=== PATIENT | female | born 1950 | race Caucasian/White ===

== ENCOUNTER 2018-01-30 09:17 | Day surgery (SDC) | payer MEDICARE, MEDICAID ==
[~2018-01-30 09:17] MED LIST: Buffered Lidocaine 0.9% SYRIN* 5 ML/SYR SYRINGE INTRADERM ONE; Dexamethasone IV* 4 MG/ML 1 ML (4 MG) IV SLOW PU ONE; Famotidine IV* 10 MG/ML 2 ML (20 mg) IV ONE
[2018-01-30] MEDS ORDERED: Dexamethasone IV* 4 MG/ML 1 ML (4 MG) ONE (09:46)
[2018-01-30] MEDS ORDERED: Famotidine IV* 10 MG/ML 2 ML (20 mg) ONE (09:46)
[2018-01-30] MEDS ORDERED: Clindamycin 900 MG/D5W BAG(*) 900 MG/50 ML BAG IVPB ONE (09:46)
[2018-01-30] MEDS ORDERED: Propofol* 10 MG/ML 20 ML BTL IV PUSH ONE (10:01)
[2018-01-30] MEDS ORDERED: fentaNYL* 50 MCG/ML 2 ML VIAL (100 MCG VIAL) ONE ×2 (10:01→12:29)
[2018-01-30] MEDS ORDERED: Lidocaine 2% PF * 5 ML VIAL ONE (10:02)
[2018-01-30] MEDS ORDERED: Ropivacaine* 2 MG/ML 20 ML VIAL (0.2%) ONE (10:06)
[2018-01-30] MEDS ORDERED: Glycopyrrolate IV* 0.2 MG/ML 1 ML VIAL ONE (11:23)
[2018-01-30] MEDS ORDERED: Ondansetron INJ* 2 MG/ML VIAL ONE (11:29)
[2018-01-30] MEDS ORDERED: Ketorolac INJ* 30 MG/ML 1 ML VIAL IV PRN (11:34)
[2018-01-30] MEDS ORDERED: DiMENhydriNATE IV* 50 MG/ML VIAL IV PUSH PRN (11:34)
[2018-01-30] MEDS ORDERED: Naloxone* 0.4 MG/ML 1 ML VIAL IV PRN (11:34)
[2018-01-30 13:33] VITALS: BP 132/69
--- NOTE | 2018-02-04 07:27 | OP ---
OPERATIVE REPORT: DATE OF OPERATION: 01/30/18 DATE OF : 50 SURGEON: Etienne Lewis MD SENIOR WEB DEVELOPER: VON Ritter An transportation assistant was needed for the entirety of the procedure to aid in positioning of the arm and retraction. ANESTHESIOLOGIST: Dr. Casas. PRE-OP DIAGNOSIS: Severe left peripheral ulnar nerve compression with concern for double crush injury as the patient has developed significant motor symptoms and beginning of a claw hand. POST-OP DIAGNOSIS: Severe left peripheral ulnar nerve compression with concern for double crush injury as the patient has developed significant motor symptoms and beginning of a claw hand. OPERATIVE PROCEDURE: 1. Left ulnar nerve decompression at the elbow with anterior transposition. 2. Left ulnar nerve decompression at the wrist with decompression of the motor branch. INDICATIONS: Brittany is 67 years old. She has been developing significant progressive ulnar nerve symptoms. 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 I talked to her about the risks and benefits including the risk of persistent weakness and clawing of the hand and persistent numbness and tingling despite doing surgery. She also understands the risk of neurovascular injury. She would like to proceed. ESTIMATED BLOOD LOSS: 5 mL. COMPLICATIONS: None. FINDINGS: See above and below. DESCRIPTION OF PROCEDURE: Brittany was seen in the preoperative holding area. The correct site, side, and procedure were identified. We came back to the operating room. The arm was prepped and draped in the usual fashion. A time- out was performed. The arm was exsanguinated with the Esmarch and the tourniquet inflated to 250 mmHg. I then made a longitudinal incision in the proximal forearm, which was brought back across the wrist in Lee Ann type fashion. Dissection was carried down and the fascia overlying Guyon's canal was opened in its entirety. The ulnar artery was identified. There was a couple of perforating vessels that look like they may be potentially compressing the ulnar nerve and so these were cauterized with a bipolar cautery. The artery was then retracted out of the way. The motor branch was identified as it coursed down under the hypothenar fascia. The fascia was released including the deep fascia in its entirety to fully decompress the motor branch. Once the decompression was completed distally and proximally, I irrigated out the wound and the skin was closed with 4-0 nylon suture. We then abducted and externally rotated the arm. A curvilinear incision was made, centered over Galan's ligament. Dissection was carried down. Care was taken to preserve the medial antebrachial cutaneous nerve. The decompression was begun just proximal to Galan's ligament and was taken proximally past the arcade of [place]. Galan's ligament was then decompressed as was the superficial and deep FCU fascial layers. Once I had performed complete neurolysis of the nerve, it was obvious that nerve will be compressed right into the Galan's ligament. The nerve was then stable, so I went ahead and performed a neurolysis using vessel loop for gentle retraction. I then raised step cut type flaps of my flexor pronator fascia and excised the muscular septi. I excised the medial intramuscular septum and the leading edge of the FCU fascia. Once I had a nice soft muscular bed, I went ahead and transposed the nerve up onto this and then sewed the ends of myofascial flaps end to end with 4-0 Ethibond suture. There was nominal compression or kinking of the nerve. It coursed to nice straight path down across the elbow. Hemostasis was obtained with a Bovie cautery. The subcutaneous tissue was reapproximated with 3-0 Vicryl suture. The skin was closed with 3-0 Monocryl suture and Steri- Strips. Local anesthetic was infiltrated in the operative area. The wounds were appropriately dressed and a long arm splint with collateral buttress was applied. She was then awoken up and taken to the recovery room in stable condition. [id number]/[facility] #: [id number] [facility] CENTERWilliam
== END 2018-01-30 14:00 | disposition home or self-care (01) ==
LOC: OR 09:17
PROVIDERS: ATTEND Orthopaedic Surgery Hand Surgery
DX: G56.22 Lesion of ulnar nerve, left upper limb (principal); Z72.0 Tobacco use; G47.33 Obstructive sleep apnea (adult) (pediatric); G47.10 Hypersomnia, unspecified; Z88.0 Allergy status to penicillin; I10 Essential (primary) hypertension; Z68.36 Body mass index [BMI] 36.0-36.9, adult; F41.8 Other specified anxiety disorders
CPT/HCPCS: 88304; 88311; J1100; J2405; J2704; J2795; J3010

== ENCOUNTER 2018-02-23 13:22 | Emergency (ER) | payer MEDICARE, MEDICAID ==
--- OUTSIDE RECORDS SUMMARY | 2018-02-23 13:31 | XMS REPORT ---
:1950 External Reference #:[id number] Author Organization [employer] Address [address] [place] [address] Phone [phone] Care Team Providers Name Role Phone Eric Whitney MD Primary Care Physician Unavailable Payers Type Date Identification Numbers Payment Provider Subscriber Commercial Policy Number: [id number] Amer Prog/Todays Options Andie Dey PayID: [id number] [address] [address] Attn: [place] [address] Medigap Part B Expires: 2017 Policy Number: Medicare Andie Dey [id number] PayID: [id number] [address] [place] [address] Commercial Expires: Policy Number: Cotton/Totalcare Andie Dey 2016 [id number] Medicaid PayID: [id number] [address] [address] [place] [address] Medigap Part B Effective: 2016 Policy Number: Medicaid Andie Dey [id number] Group Name: 1 1 [address] PayID: [id number] [place] [address] Problems Date Description Provider Status Onset: 09/26/2014 Obstructive sleep apnea Gurvinder Colvin M.D. 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 Note: Despite CPAP use Onset: 06/24/2015 Tobacco user Carrie Chacon DNP, RN, DISTRICT WILDLIFE MANAGER-BC Active Onset: 02/03/2016 Dyssomnia Carrie Chacon DNP, RN, [facility] Active Family History Date Family Member(s) Problem(s) Comments General MGM artherosclorosis MGF at age 98 ;PGF and PGM heart attacks Father Arteriosclerosis Father heart attack Mother "organ failure" Siblings 1 Siblings older brother ; alive and well Social History Type Date Description Comments Marital Status Single Lives With Alone Occupation Retired ETOH Use Denies alcohol use Recreational Drug Use Denies Drug Use Smoking Heavy tobacco smoker (more than 10 cigarettes/day) Daily Caffeine Consumes on average 4 cups of regular coffee per day Exercise Type/Frequency Does not exercise Allergies, Adverse Reactions, Alerts Date Description Reaction Status Severity Comments 08/08/2014 Penicillin active 08/08/2014 Stress active 02/06/2018 Lidocaine Nausea and Vomiting active Medications Medication Date Status Form Strength Qnty SIG Indications Ordering Provider Tramadol HCL 01/30 Active Tablets 50mg 30tab 1-2 s tablets by MD Joshua mouth every 6 hours as needed pain Celexa 01/16 Active Tablets 20mg 1 by mouth every day Oxycodone HCL 08/07 Active Tablets 10mg 1 by mouth every 6 hours as needed pain Lisinopril 08/07 Active Tablets 40mg 1 by mouth every day Simvastatin 08/07 Active 1 by mouth every day Citalopram Active Tablets 40mg Take One Unknown Hydrobromide /0000 Tablet By Mouth Every Day Hydrochlorothiazid Active Tablets 12.5mg Take One Unknown e /0000 Tablet By Mouth Every Day Claritin Active Capsules 10mg 1 tab Unknown /0000 daily as needed Trazodone HCL 02/02 Hx Tablets 50mg 30tab 1 tab at G47.00 s night a 7 Ines, Dotty days, if VALERIE BRADSHAW, 05/18 unable to [facility] sleep may repeat as needed Modafinil 01/17 Hx Tablets 100mg 30tab 1 po q Am s Ines, Dotty BRADSHAW RN, 01/21 [facility] Melatonin ER 01/17 Hx Tablets 3mg 7tabs for 1 week ER take Dotty Chacon medication VALERIE BRADSHAW, 09/21 at 7 at [facility] night then discontinu e. Wellbutrin 12/04 Hx Tablets 75mg 1 by mouth Unknown bid - 02/28 Abilify 08/07 Hx Tablets 5mg 1 by mouth Unknown every day - 01/16 Effexor XR 08/07 Hx Caps ER 150mg 1 by mouth Unknown 24HR every day - 12/04 Vital Signs Date Vital Result Comment 02/08/2018 Height 64 inches 5'4" Heart Rate 60 /min BP Systolic 130 mmHg BP Diastolic 90 mmHg Body Temperature 98.5 F Pain Level 0 02/06/2018 Height 64 inches 5'4" Weight 204.00 lb Heart Rate 60 /min BP Systolic 142 mmHg BP Diastolic 84 mmHg Respiratory Rate 16 /min Body Temperature 98.6 F BMI (Body Mass Index) 35.0 kg/m2 01/03/2018 Height 64 inches 5'4" Weight 214.00 lb Heart Rate 88 /min BP Systolic 136 mmHg BP Diastolic 80 mmHg Respiratory Rate 18 /min Body Temperature 98.0 F Pain Level 6 BMI (Body Mass Index) 36.7 kg/m2 11/16/2016 Height 64 inches 5'4" Weight 205.00 lb BP Systolic 133 mmHg BP Diastolic 81 mmHg Respiratory Rate 17 /min Pain Level 10 BMI (Body Mass Index) 35.2 kg/m2 06/29/2016 Height 64 inches 5'4" Weight 220.00 lb Heart Rate 65 /min BP Systolic Sitting 148 mmHg BP Diastolic Sitting 88 mmHg Respiratory Rate 14 /min O2 % BldC Oximetry 97 % BMI (Body Mass Index) 37.8 kg/m2 05/04/2016 Height 64 inches 5'4" Weight 217.00 lb Heart Rate 76 /min BP Systolic 168 mmHg BP Diastolic 98 mmHg Respiratory Rate 14 /min O2 % BldC Oximetry 96 % BMI (Body Mass Index) 37.2 kg/m2 02/03/2016 Height 64 inches 5'4" Weight 219.00 lb clothed with shoes Heart Rate 68 /min BP Systolic Sitting 155 mmHg BP Diastolic Sitting 88 mmHg Respiratory Rate 18 /min O2 % BldC Oximetry 97 % BMI (Body Mass Index) 37.6 kg/m2 12/23/2015 Height 64 inches 5'4" Weight 224.00 lb Heart Rate 72 /min BP Systolic 160 mmHg BP Diastolic 90 mmHg Respiratory Rate 14 /min O2 % BldC Oximetry 97 % BMI (Body Mass Index) 38.4 kg/m2 09/22/2015 Weight 239.00 lb Heart Rate 99 /min BP Systolic Sitting 179 mmHg BP Diastolic Sitting 109 mmHg Body Temperature 98.7 F 08/01/2015 Height 64 inches 5'4" Weight 250.00 lb Heart Rate 74 /min BP Systolic 120 mmHg BP Diastolic 72 mmHg Respiratory Rate 14 /min O2 % BldC Oximetry 98 % BMI (Body Mass Index) 42.9 kg/m2 06/24/2015 Height 64 inches 5'4" Weight 250.00 lb Heart Rate 78 /min BP Systolic 118 mmHg BP Diastolic 70 mmHg Respiratory Rate 14 /min O2 % BldC Oximetry 98 % BMI (Body Mass Index) 42.9 kg/m2 02/28/2015 Height 64 inches 5'4" Weight 250.00 lb Heart Rate 77 /min BP Systolic Sitting 148 mmHg BP Diastolic Sitting 88 mmHg Respiratory Rate 22 /min O2 % BldC Oximetry 95 % BMI (Body Mass Index) 42.9 kg/m2 01/17/2015 Heart Rate 68 /min BP Systolic Sitting 124 mmHg BP Diastolic Sitting 60 mmHg Respiratory Rate 18 /min O2 % BldC Oximetry 95 % 12/05/2014 Height 64 inches 5'4" Weight 251.00 lb reported Heart Rate 102 /min BP Systolic 140 mmHg BP Diastolic 100 mmHg Respiratory Rate 22 /min O2 % BldC Oximetry 95 % BMI (Body Mass Index) 43.1 kg/m2 Neck Circumference in inches 17 09/26/2014 Height 64 inches 5'4" Weight 250.00 lb Heart Rate 81 /min BP Systolic Sitting 138 mmHg BP Diastolic Sitting 88 mmHg O2 % BldC Oximetry 96 % BMI (Body Mass Index) 42.9 kg/m2 Neck Circumference in inches 17 08/08/2014 Height 64 inches 5'4" Weight 253.00 lb with shoes on Heart Rate 83 /min BP Systolic Sitting 144 mmHg BP Diastolic Sitting 82 mmHg Respiratory Rate 20 /min Body Temperature 97.9 F O2 % BldC Oximetry 96 % BMI (Body Mass Index) 43.4 kg/m2 Results Test Date Test Result H/L Range Note Laboratory test 01/30/2018 Surgical Pathology SEE RESULT BELOW 1 finding 1 SEE RESULT BELOW Name: ANDIE DEY : [address]: Etienne Lewis MD Acct: [id number] Unit: [id number] AGE: 67 Location: OR Re01/30/18 SEX: F Status: [facility] SPEC: [id number] UNA: 01/30/18- [facility] DR: Etienne Lewis MD REQ: [id number] RECD: 01/30/18173 STATUS: SOUT _ ORDERED: Decal, LEVEL 3 FINAL DIAGNOSIS Left pisiform, excision: -- Benign bone and cartilage with reactive change. PRE-OPERATIVE DIAGNOSIS Lesion of ulnar nerve, left upper limb GROSS DESCRIPTION The specimen is received in formalin labeled, Left Pisiform, and consists of a 1.7 x 1.4 x 1.0 cm garcia-pink ovoid bone fragment with a small amount of adherent garcia-pink soft tissue. The specimen is partially surfaced by a garcia-pink smooth to focally eburnated articular surface. Skein Washer sections, one cassette following decalcification. Signed by and Reported on: Ashlie Pinon MD 02/02/18 1120 END OF REPORT DEPARTMENT OF PATHOLOGY, [address] [place] [address] Hiram Garza M.D. Director [facility] # [id number] Procedures Date CPT Code Description Status 01/30/2018 44795 Neuroplasty/Transposition, Ulnar Nerve AT Wrist Completed 01/30/2018 51214 Neuroplasty/Transposition, Ulnar Nerve AT Wrist Completed 01/30/2018 03485 Neuroplasty &/Or Transposition; Ulnar Nerve AT Elbow Completed 01/30/2018 96241 Neuroplasty &/Or Transposition; Ulnar Nerve AT Elbow Completed 06/14/2016 34086 Polysomnography Sleep Staging 4+ Parameters Completed 11/06/2014 92186 Polysomnography Sleep Staging 4+ Parameters W/Cpap Completed 09/08/2014 42410 Polysomnography Sleep Staging 4+ Parameters Completed 11/03/2010 Colonoscopy Completed Encounters Type Date Location Provider CPT E/M Dx Office Visit 01/03/2018 [facility] [place] [address] G56.23 2:30p CColeenMMedina Office Visit 11/16/2016 [facility] Ubaldo Soares, 31981 M17.12 2:00p Isamar MARTINEZ Office Visit 06/29/2016 [facility] Sleep Carrie Chacon, 05602 G47.00 1:00p Services Of Cheli BRADSHAW RN, FNP-BC Office Visit 05/04/2016 [facility] Carrie Chacon, 97561 G47.33 3:15p Services Of Cheli BRADSHAW RN, KILEY G47.00 F17.210 Office Visit 02/03/2016 1:00p [facility] Carrie Chacon, 17361 G47.33 Services Of Cheli BRADSHAW RN, FNP-BC G47.14 G47.00 F17.210 Office Visit 12/23/2015 1:00p [facility] Sleep Carrie Chacon, 77024 G47.33 Services Of [facility] LEEANN RN, [facility]- G47.10 E66.01 F17.210 Office Visit 09/22/2015 3:00p [facility] Internal Medicine Bon Carr, 13696 H92.02 - Edis Owens F32.8 Office Visit 08/01/2015 10:30a [facility] Sleep Carrie Chacon, 01133 G47.33 Services Of [facility] LEEANN RN, [facility] F17.210 E66.01 Office Visit 06/24/2015 10:15a [facility] Sleep Carrie Chacon, 80850 G47.33 Services Of [facility] VALERIE BRADSHAW, DISTRICT WILDLIFE MANAGER-CHESTER E66.01 F17.210 Office Visit 02/28/2015 1:30p [facility] Sleep Carrie Chacon, 42711 G47.33 Services Of [facility] VALERIE BRADSHAW, [facility] G47.10 Office Visit 01/17/2015 1:15p [facility] Sleep Carrie Chacon, 29477 780.53 Services Of [facility] VALERIE BRADSHAW, [facility] Office Visit 12/05/2014 9:45a Pul[facility]ology And Sleep Gurvinder Colvin, 06499 327.23 Services Of Cheli M.Constance Office Visit 09/26/2014 9:45a [facility]ology [facility] Sleep Gurvinderjosh Colvin, 75667 327.23 Services Of Body Fitter M.DColeen Office Visit 08/08/2014 1:45p [facility] Gurvinder Colvin, 17242 780.53 Services Of [facility] Blair.Constance Plan of Care Future Appointment(s):03/08/2018 10:45 am - Etienne Lewis MD at [facility]02/27/2018 9:30 am - Mika Grimes MD, FACS at [facility]
--- OUTSIDE RECORDS SUMMARY | 2018-02-23 13:32 | XMS REPORT ---
:1950 External Reference #:[id number] Author Organization [employer] Address [address] [place] [address] Phone [phone] Care Team Providers Name Role Phone Eric Whitney MD Primary Care Physician Unavailable Payers Type Date Identification Numbers Payment Provider Subscriber Commercial Policy Number: [id number] Amer Prog/Todays Options Andie Dey PayID: [id number] [address] [address] Attn: [place] [address] Medigap Part B Expires: 2017 Policy Number: Medicare Andie Dey [id number] PayID: [id number] [address] [facility] [place] [address] Commercial Expires: Policy Number: Cotton/Totalcare Andie Dey 2016 [id number] Medicaid PayID: [id number] [address] [address] [place] [address] Medigap Part B Effective: 2016 Policy Number: Medicaid Andie Dey [id number] Group Name: 1 1 [address] PayID: [id number] [place] [address] Medigap Part B Policy Number: [id number] Medicare Andie Dey PayID: [id number] [address] [facility] [place] [address] Problems Date Description Provider Status Onset: 09/26/2014 Obstructive sleep apnea Gurvinder Colvin M.D. 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 Note: Despite CPAP use Onset: 06/24/2015 Tobacco user Carrie Chacon DNP RN, DIRECTOR OF CLINICAL EDUCATION-BC Active Onset: 02/03/2016 Dyssomnia Carrie Chacon DNP RN, [facility] Active Family History Date Family Member(s) Problem(s) [...] 1 tab at G47.00 s night a Dotty Weldon, narinder BRADSHAW RN, 05/18 unable to [facility] sleep may repeat as needed Modafinil 01/17 Hx Tablets 100mg 30tab 1 po q Am oDtty Mulligan DNP, RN, 01/21 [facility] Melatonin ER 08/28 Hx Tablets 3mg 7tabs for 1 week ER take Chacon, - medication LEEANN, RN, 09/21 at 7 at [facility]- night then discontinu e. Wellbutrin 12/04 Hx Tablets 75mg 1 by mouth bid - 02/28 Abilify 08/07 Hx Tablets 5mg 1 by mouth every day - 01/16 Effexor XR 08/07 Hx Caps ER 150mg 1 by mouth 24HR every day - 12/04 Vital Signs Date Vital Result Comment 02/06/2018 Height 64 inches 5'4" Weight 204.00 [...] [address]: Etienne Lewis MD Acct: [id number] Unit: [id number] AGE: 67 Location: OR Re01/30/18 SEX: F Status: [facility] SPEC: [id number] UNA: 01/30/18- [facility] DR: Etienne Lewis MD REQ: [id number] RECD: 01/30/18029 STATUS: SOUT _ ORDERED: Decal, LEVEL 3 [...] garcia-pink smooth to focally eburnated articular surface. Student Counsellor sections, one cassette following decalcification. Signed by and Reported on: Ashlie Pinon MD 02/02/18 1120 END OF REPORT DEPARTMENT OF PATHOLOGY, [address] [place] [address] Hiram Garza M.D. Director [facility] # [id number] Procedures Date CPT Code Description Status 01/30/2018 39879 Neuroplasty/Transposition, Ulnar Nerve AT Wrist Completed 01/30/2018 24083 Neuroplasty &/Or Transposition; Ulnar Nerve AT Elbow Completed 06/14/2016 13484 Polysomnography Sleep Staging 4+ Parameters Completed 11/06/2014 64950 Polysomnography Sleep Staging 4+ Parameters W/Cpap Completed 09/08/2014 35589 Polysomnography Sleep Staging 4+ Parameters Completed 11/03/2010 Colonoscopy Completed Encounters Type Date Location Provider CPT E/M Dx Office Visit 01/03/2018 [facility] [place] [address] G56.23 2:30p [facility] Office Visit 11/16/2016 [facility] Of bUaldo Soares, 14153 M17.12 2:00p Isamar MARTINEZ Office Visit 06/29/2016 [facility] Sleep Carrie Chacon, 24287 G47.00 1:00p Services Of Cheli BRADSHAW RN, KILEY Office Visit 05/04/2016 [facility] Sleep Carrie Chacon, 99440 G47.33 3:15p Services Of Cheli BRADSHAW RN, FNP-BC G47.00 F17.210 Office Visit 02/03/2016 1:00p [facility] Sleep Carrie Chacon, 51480 G47.33 Services Of Cheli BRADSHAW RN, KILEY G47.14 G47.00 F17.210 Office Visit 12/23/2015 1:00p [facility] Sleep Carrie Chacon, 12023 G47.33 Services Of Cheli BRADSHAW RN, [facility] G47.10 E66.01 F17.210 Office Visit 09/22/2015 3:00p [facility] Internal Medicine Bon MilesColeen Huntie, 98515 H92.02 - Edis Owens F32.8 Office Visit 08/01/2015 10:30a Pul[facility]ology And Sleep Carrie Chacon, 12308 G47.33 Services Of [facility] VALERIE BRADSHAW, [facility] F17.210 E66.01 Office Visit 06/24/2015 10:15a [facility]ology And Sleep Carrie Chacon, 13516 G47.33 Services Of [facility] VALERIE BRADSHAW, [facility] E66.01 F17.210 Office Visit 02/28/2015 1:30p Pul[facility]ology And Sleep Carrie Chacon, 97801 G47.33 Services Of [facility] VALERIE BRADSHAW, [facility] G47.10 Office Visit 01/17/2015 1:15p [facility]ology [facility] Sleep Carrie Chacon, 62897 780.53 Services Of [facility] VALERIE BRADSHAW, [facility] Office Visit 12/05/2014 9:45a Pulmonology And Sleep Gurvinderjosh Colvin, 76308 327.23 Services Of [facility] M.D. Office Visit 09/26/2014 9:45a Pul[facility]ology And Sleep Gurvinderjosh Colvin, 38751 327.23 Services Of Global Coordinator M.D. Office Visit 08/08/2014 1:45p Pul[facility]ology And Sleep Gurvinder Colvin, 73677 780.53 Services Of [facility] M.D. Plan of Care Future Appointment(s):02/27/2018 9:30 am - Mika Grimes MD, FACS at [facility]02/08/2018 11:15 am - Etienne Lewis MD at [facility]02/06/2018 - Mika Grimes MD, FACSB07.9 Viral wart, unspecifiedFollow up:3 weeksInstructions:see handout.
[2018-02-23 13:41] VITALS: BP 136/78
--- NOTE | 2018-02-23 13:44 | UC ---
Truncal Trauma HPI - HPI Summary HPI Summary: 67 yo female presents with left rib injury. She tells me that yesterday she was walking her dogs when their leash got tangled around her feet. She fell forward onto her hands and left side. She did not hit her head or have LOC. She didn't have much pain at the time, but this morning woke up with left rib pain. Her pain is worse with deep breaths or cough. She takes chronic oxycodone for her back, but says this is not touching the pain in her ribs. She denies fever, cardiac chest pain, chest pressure, SOB, TREJO, abdominal pain. - History Of Current Complaint Chief Complaint: UCGeneralIllness Stated Complaint: RIB INJURY Time Seen by Provider: 02/23/18 13:43 Hx Obtained From: Patient Onset/Duration: Sudden Onset Severity Initially: Mild Severity Currently: Severe Pain Intensity: 8 Pain Scale Used: 0-10 Numeric - Allergies/Home Medications Allergies/Adverse Reactions: Allergies Allergy/AdvReac Type Severity Reaction Status Date / Time Adhesive Tape [Plastic Tape] Allergy IRRITATES Verified 01/30/18 09:48 lidocaine Allergy See Comment Verified 02/23/18 13:51 Penicillins Allergy Unknown Verified 02/23/18 13:50 Reaction Details Home Medications: Home Medications Hydrocodone/Acetaminophen [Hydrocodone-Acetamin 5-325 mg] 3 tab PO DAILY PRN 09/07 [History Confirmed 02/23/18] PMH/Surg Hx/FS Hx/Imm Hx - Additional Past Medical History Additional PMH: Chronic pain Endocrine History: Dyslipidemia Cardiovascular History: Hypertension Psychological History: Anxiety, Depression - Surgical History Surgical History: Yes Surgery Procedure, Year, and Place: HYSTERECTOMY 1993. TONSILECTOMY 11/25/2015. CARPAL TUNNEL [facility]. Left elbow and wrist surgery 01/30/2018 - Family History Known Family History: Positive: None - Social History Occupation: Retired Lives: With Family Alcohol Use: None Substance Use Type: None Smoking Status (MU): Heavy Every Day Tobacco Smoker Type: Cigarettes Amount Used/How Often: 1 PPD SINCE AGE 16 Have You Smoked in the Last Year: Yes Household Exposure Type: Cigarettes Review of Systems Constitutional: Negative Skin: Negative Respiratory: Negative Cardiovascular: Negative Neurovascular: Negative Musculoskeletal: Other: - Left rib pain Neurological: Negative Psychological: Negative All Other Systems Reviewed And Are Negative: Yes Physical Exam - Summary Physical Exam Summary: GENERAL: NAD. WDWN. No pain distress. SKIN: No rashes, sores, lesions, or open wounds. CHEST: CTBA. No r/r/w. No accessory muscle use. Breathing comfortably and in no distress. CV: Pulses intact radial and ulnar. Cap refill <2seconds MSK: Moderate TTP at left ribs ~6-8. No bony deformity. NEURO: Alert. Sensations intact hand and all fingers. PSYCH: Age appropriate behavior. Triage Information Reviewed: Yes Vital Signs: Initial Vital Signs Temp 98.2 F 02/23/18 13:32 Pulse 56 02/23/18 13:32 Resp 20 02/23/18 13:32 BP 136/78 02/23/18 13:32 Pulse Ox 99 02/23/18 13:32 Vital Signs Reviewed: Yes Truncal Trauma Course/Dx - Course Course Of Treatment: CXR: IMPRESSION: NONDISPLACED FRACTURE OF THE LEFT LATERAL SEVENTH RIB. Pt is asking for something more for pain. She tells me that she had left wrist surgery about a month ago and had tramadol with good pain relief - will rx for a few day supply of tramadol not to be taken with her oxycodone. Advised to f/u with PCP within 2 weeks for recheck. Pt agreeable to plan. Reference #: [id number] - Differential Dx/Diagnosis Provider Diagnoses: NONDISPLACED FRACTURE OF THE LEFT LATERAL SEVENTH RIB. Discharge - Sign-Out/Discharge Documenting (check all that apply): Patient Departure All imaging exams completed and their final reports reviewed: Yes - Discharge Plan Condition: Stable Disposition: HOME Prescriptions: traMADol TAB* [Ultram*] 50 mg PO Q12H PRN #6 tab MDD 2 PRN Reason: Pain Patient Education Materials: Rib Fracture (ED) Referrals: Eric Whitney MD [Primary Care Provider] - 1 Week Additional Instructions: If you develop a fever, shortness of breath, chest pain, new or worsening symptoms - please call your PCP or go to the ED. 1) DO NOT TAKE THE TRAMADOL IN ADDITION TO YOUR OXYCODONE -- these medications will interact 2) Please schedule a follow up appointment with your primary doctor within the next 1-2 weeks for a recheck - Billing Disposition and Condition Condition: STABLE Disposition: Home
--- NOTE | 2018-02-23 14:37 | RAD ---
INDICATION: Trauma, left rib pain. COMPARISON: Comparison is made with a prior chest x-ray study from November 29, 2014. TECHNIQUE: 4 views of the left ribs and dual-energy PA views of the chest were obtained. FINDINGS: There is a nondisplaced fracture of the left lateral seventh rib. The heart is within normal limits in size. The lungs are clear. There is no evidence for pneumothorax or pleural effusion. IMPRESSION: NONDISPLACED FRACTURE OF THE LEFT LATERAL SEVENTH RIB.
== END 2018-02-23 15:00 | disposition home or self-care (01) ==
LOC: UCEAST 13:22
DX: S22.32XA Fracture of one rib, left side, initial encounter for closed fracture (principal); I10 Essential (primary) hypertension; F17.210 Nicotine dependence, cigarettes, uncomplicated; Z91.09 Other allergy status, other than to drugs and biological substances; Z88.0 Allergy status to penicillin; Z88.4 Allergy status to anesthetic agent; W19.XXXA Unspecified fall, initial encounter; Y93.K1 Activity, walking an animal; Y92.9 Unspecified place or not applicable
CPT/HCPCS: 99212; G0463

== ENCOUNTER 2018-02-27 16:52 | Emergency (ER) | payer MEDICARE, MEDICAID ==
--- OUTSIDE RECORDS SUMMARY | 2018-02-27 17:06 | XMS REPORT ---
:1950 External Reference #:[id number] Author Organization [facility] Address [address] [place] [address] Phone [phone] Care Team Providers Name Role Phone Eric Whitney MD Primary Care Physician Unavailable Payers Type Date Identification Numbers Payment Provider Subscriber Commercial Policy Number: [id number] [employer]/[place] [employer] Andie Dey PayID: [id number] [address] [address] Attn: [place] [address] Medigap Part B Expires: 2017 Policy Number: Medicare Andie Dey [id number] PayID: [id number] [address] [place] [address] Commercial Expires: Policy Number: [employer] Andie Dey 2016 [id number] Medicaid PayID: [id number] [address] [address] [place] [address] Medigap Part B Effective: 2016 Policy Number: Medicaid Andie Dey [id number] Group Name: 1 1 [address] PayID: [id number] [place] [address] Problems Date Description Provider Status Onset: 09/26/2014 Obstructive sleep apnea Gurvinder Colvin M.D. Active syndrome Onset: 01/17/2015 Hypersomnia with sleep apnea Carrie Chacon DNP, RN, Active [employer] Note: Despite CPAP use Onset: 06/24/2015 Tobacco user Carrie Chacon DNP, RN, [employer] Active Onset: 02/03/2016 Dyssomnia Carrie Chacon DNP, RN, [facility] Active Family History Date Family Member(s) Problem(s) [...] days, if VALERIE BRADSHAW, 05/18 unable to [facility] sleep may repeat as needed Modafinil 01/17 Hx Tablets 100mg 30tab 1 po q Am s Ines, - VALERIE BRADSHAW, 01/21 [facility] Melatonin ER 01/17 Hx Tablets 3mg 7tabs for 1 week ER take Dotty Chacon medication VALERIE BRADSHAW, 09/21 at 7 at [facility] night then discontinu e. Wellbutrin 12/04 Hx Tablets 75mg 1 by mouth Unknown bid - 02/28 Abilify 08/07 Hx Tablets 5mg 1 by mouth Unknown every day - 01/16 Effexor XR 08/07 Hx Caps ER 150mg 1 by mouth 24HR every day - 12/04 Vital Signs Date Vital Result Comment 02/27/2018 Heart Rate 64 /min BP Systolic 146 mmHg BP Diastolic 90 mmHg Respiratory Rate 18 /min Body Temperature 97.2 F 02/08/2018 Height 64 inches 5'4" Heart Rate [...] [address]: Etienne Lewis MD Acct: [id number] Unit: [id number] AGE: 67 Location: OR Re01/30/18 SEX: F Status: [facility] SPEC: [id number] UNA: 01/30/18- [facility] DR: Etienne Lewis MD REQ: [id number] RECD: 01/30/18997 STATUS: SOUT _ ORDERED: [place], LEVEL 3 FINAL DIAGNOSIS Left pisiform, excision: [...] garcia-pink smooth to focally eburnated articular surface. Translator And Interpreter sections, one cassette following decalcification. Signed by and Reported on: Ashlie Pinon MD 02/02/18 1120 END OF REPORT DEPARTMENT OF PATHOLOGY, [address] [place] [address] Hiram Garza M.D. Director [facility] # [id number] Procedures Date CPT Code Description Status 02/06/2018 25510 Destruction Of Benign Lesions Any Method 1-14 lesions Completed 01/30/2018 80061 Neuroplasty/Transposition, Ulnar Nerve AT Wrist Completed 01/30/2018 86122 Neuroplasty &/Or Transposition; Ulnar Nerve AT Elbow Completed 01/30/2018 24783 Neuroplasty &/Or Transposition; Ulnar Nerve AT Elbow Completed 06/14/2016 31160 Polysomnography Sleep Staging 4+ Parameters Completed 11/06/2014 57436 Polysomnography Sleep Staging 4+ Parameters W/Cpap Completed 09/08/2014 43094 Polysomnography Sleep Staging 4+ Parameters Completed 11/03/2010 Colonoscopy Completed Encounters Type Date Location Provider CPT E/M Dx Office Visit 01/03/2018 [facility] [place] [address] G56.23 2:30p C.M.AColeen Office Visit 11/16/2016 [facility], 63804 M17.12 2:00p Isamar MARTINEZ Office Visit 06/29/2016 [facility] Carrie Chacon, 65579 G47.00 1:00p Services Of Cheli BRADSHAW RN, [facility] Office Visit 05/04/2016 [facility] Carrie Chacon 66279 G47.33 3:15p Services Of [facility]li BRADSHAW RN, [place] G47.00 F17.210 Office Visit 02/03/2016 1:00p [facility] Carrie Chacon 17452 G47.33 Services Of Cheli BRADSHAW, RN, [facility] G47.14 G47.00 F17.210 Office Visit 12/23/2015 1:00p [facility] Carrie Chacon, 92151 G47.33 Services Of [facility] LEEANN, RN, [facility] G47.10 E66.01 F17.210 Office Visit 09/22/2015 3:00p [facility] Internal Medicine [place], [address] H92.02 - Edis Owens F32.8 Office Visit 08/01/2015 10:30a [facility] Carrie Chacon, 30532 G47.33 Services Of [facility] LEEANN, RN, [facility] F17.210 E66.01 Office Visit 06/24/2015 10:15a [facility] Sleep Carrie Chacon, 06094 G47.33 Services Of [facility] VALERIE BRADSHAW, [facility] E66.01 F17.210 Office Visit 02/28/2015 1:30p [facility] Carrie Chacon, 44338 G47.33 Services Of [facility] LEEANN RN, [facility] G47.10 Office Visit 01/17/2015 1:15p [facility] Sleep Carrie Chacon, 01741 780.53 Services Of [facility] VALERIE BRADSHAW, [facility] Office Visit 12/05/2014 9:45a [facility] Sleep Gurvinder Colvin, 97299 327.23 Services Of Cheli M.D. Office Visit 09/26/2014 9:45a [facility] Gurvinder Colvin, 37019 327.23 Services Of Cleaning Manager M.D. Office Visit 08/08/2014 1:45p [facility] Gurvinderjosh Colvin, 60326 780.53 Services Of Cleaning Manager M.D. Plan of Care Future Appointment(s):02/28/2018 11:00 am - Etienne Lewis MD at [facility]03/08/2018 10:45 am - Etienne Lewis MD at [facility]02/27/2018 - Mika Grimes MD, FACSB07.9 Viral wart, unspecifiedFollow up:As fguatuA27.39xS Fracture of one rib, unspecified side, sequelaRecommendations:If your symptoms worsen, call your PCP for sooner follow up or go to the Emergency Department.
[2018-02-27 17:58] VITALS: BP 147/75
--- NOTE | 2018-02-27 18:28 | UC ---
Cardiac HPI - HPI Summary HPI Summary: 67 y/o female presents to the urgent care c/o Pt reports that she was walking dogs and leashes tripped her and she fell on her left side. She came here on 02/23/18 and was given two days of pain medication, but pain is not gone. 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 TONSILECTOMY 11/25/2015. [facility]PAL TUNNEL [facility]. Left elbow and wrist surgery 01/30/2018 - Family History Known Family History: Positive: None - Social History Alcohol Use: None Substance Use Type: None Smoking Status (MU): Heavy Every Day Tobacco Smoker Type: Cigarettes Amount Used/How Often: 1 PPD SINCE AGE 16 Have You Smoked in the Last Year: Yes Household Exposure Type: Cigarettes Physical Exam Vital Signs: Initial Vital Signs Temp 97.7 F 02/27/18 17:53 Pulse 52 02/27/18 17:53 Resp 16 02/27/18 17:53 BP 147/75 02/27/18 17:53 Pulse Ox 98 02/27/18 17:53 - Clinical Impression Provider Diagnoses: 1- Left side sevent rib nondisplaced fracture. 2- Rib pain. 3- Uncontrolled HTN Discharge - Sign-Out/Discharge Documenting (check all that apply): Patient Departure - D/c home All imaging exams completed and their final reports reviewed: No Studies - Discharge Plan Condition: Stable Disposition: HOME Prescriptions: traMADol TAB* [Ultram*] 50 mg PO Q12H PRN #6 tab MDD 400mg/day PRN Reason: Pain Patient Education Materials: Rib Fracture (ED), Low-Sodium Diet (ED) Referrals: Eric Whitney MD [Primary Care Provider] - 3 Days Additional Instructions: 1--Please take tramadol PO as directed after meals to alleviate pain and swelling. Use the Incentive spirometer as directed , rest and avoid strenuous exercise 2- Continue taking your Norcon if needed for pain. 3 Please f/u with your PCP in 3 days for further evaluation and treatment in your Rib fracture 4- If you develop severe rib pain w. SOB and difficulty breathing gplease go immediately to the ER for further management 5-.Your BP is elevated today. please decrease salt in your diet, monitor BP and if it continues to be elevated please f/u with your PCP for further management - Billing Disposition and Condition Condition: STABLE Disposition: Home
[2018-02-27] MEDS ORDERED: Ketorolac INJ* 30 MG/ML 1 ML VIAL IM ONE (18:47)
== END 2018-02-27 19:10 | disposition home or self-care (01) ==
LOC: UCEAST 16:52
DX: S22.32XA Fracture of one rib, left side, initial encounter for closed fracture (principal); W01.0XXA Fall on same level from slipping, tripping and stumbling without subsequent striking against object, initial encounter; Y93.K1 Activity, walking an animal; Y92.9 Unspecified place or not applicable; I10 Essential (primary) hypertension; Z88.0 Allergy status to penicillin; Z88.6 Allergy status to analgesic agent; F17.210 Nicotine dependence, cigarettes, uncomplicated
CPT/HCPCS: 96372; 99202; G0463; J1885

== ENCOUNTER 2019-02-08 07:18 | Day surgery (SDC) | payer MEDICARE, MEDICAID ==
[~2019-02-08 07:18] MED LIST changes: -Buffered Lidocaine 0.9% SYRIN* 5 ML/SYR SYRINGE INTRADERM ONE; +Buffered Lidocaine 1% SYRIN* 1 ML/SYRINGE INTRADERM ONE; +Lactated Ringers 1000 ML Bag* 1,000 ML IV SCH
[2019-02-08] MEDS ORDERED: Famotidine IV* 10 MG/ML 2 ML (20 mg) ONE (07:30)
[2019-02-08] MEDS ORDERED: Clindamycin 900 MG/D5W BAG(*) 900 MG/50 ML BAG IVPB ONE (07:30)
[2019-02-08] MEDS ORDERED: Dexamethasone IV* 4 MG/ML 1 ML (4 MG) ONE (07:30)
[2019-02-08] MEDS ORDERED: Midazolam* 1 MG/ML 2 ML VIAL (2 MG) ONE (08:42)
[2019-02-08] MEDS ORDERED: fentaNYL* 50 MCG/ML 2 ML VIAL (100 MCG VIAL) ONE (08:42)
[2019-02-08] MEDS ORDERED: Bupivacaine 0.25% SDV* 30 ML ONE (08:46)
[2019-02-08] MEDS ORDERED: Naloxone* 0.4 MG/ML 1 ML VIAL IV PRN (08:48)
[2019-02-08] MEDS ORDERED: Propofol* 10 MG/ML 20 ML BTL ONE ×2 (08:50→09:24)
[2019-02-08 10:07] VITALS: BP 166/71
--- NOTE | 2019-02-08 12:15 | OP ---
OPERATIVE REPORT: DATE OF OPERATION: 02/08/19 DATE OF : 50 SURGEON: Etienne Lewis MD FLOATER OPERATOR: VON Ritter ANESTHESIOLOGIST: Dr. Casas. ANESTHESIA: Local MAC. PRE-OP DIAGNOSES: 1. Right trigger thumb. 2. Right middle trigger finger. 3. Right middle finger mucous cyst. POST-OP DIAGNOSES: 1. Right trigger thumb. 2. Right middle trigger finger. 3. Right middle finger mucous cyst. OPERATIVE PROCEDURE: 1. Right trigger thumb release. 2. Right middle trigger finger release. 3. Right middle finger mucous cyst excision. INDICATIONS: Brittany has the aforementioned conditions. We talked about her treatment options, risk s and benefits. She wanted to proceed with the procedure. ESTIMATED BLOOD LOSS: 5 mL. COMPLICATIONS: None. FINDINGS: See above and below. DESCRIPTION OF PROCEDURE: Brittany was seen in the preoperative holding area. The correct site, side , and procedures were identified. We came back to the operating room. I anesthetized the operative area with 0.25% plain Marcaine. The arm was prepped and draped in the usual fashion and a time-out w as performed. The arm was exsanguinated and the tourniquet was inflated to 250 mmHg. I first made a 1 cm incision in the distal palmar crease over the middle finger A1 cristobal. Dissection was carried down and flaps w ere bluntly raised off of the tendon sheath. I released the A1 cristobal in its midline proximally and d istally. The release was completed with the tenotomy scissors. I did release the leading edge of th e A2 cristobal. The fascia proximal to the A1 cristobal was released as well. The adhesions between the t endons were and excised. I irrigated out the wound and the skin was closed with 4-0 nylon suture. I then made a 1 cm incision in the MP joint flexion crease of the right thumb. Dissection was carried down and full thickness flaps were raised off of the tendon sheath. Ragnell retractors were placed. I used the 15 blade to incise the A1 cristobal along its midline. The release was completed distally and proximally with the tenotomy scissors. The digital nerves were protected throughout the procedur e. At this point, I had her flex and extend the thumb and the middle finger multiple times. There wa s no triggering. The wound was irrigated out and the skin was closed with 4-0 nylon suture. Lastly, I made a T-shaped incision over the ulnar aspect of the right middle finger DIP joint. Full thickness flaps were raised off the cyst. The terminal extensor tendon was preserved. The cyst was coming out right off the ulnar aspect of the joint. I developed the interval between the ulnar colla teral ligament and the terminal extensor tendon. I excised the cyst. I excised the osteophyte that was associated with it. I cauterized the area. At this point, everything was looking good, so I irr igated out the wound and closed the skin with 4-0 nylon suture. Soft dressings were applied and she was taken to the recovery room in stable condition. [id number]/[facility] #: [id number]
== END 2019-02-08 10:10 | disposition home or self-care (01) ==
LOC: OREAST 07:18
PROVIDERS: ATTEND Orthopaedic Surgery Hand Surgery
DX: M65.311 Trigger thumb, right thumb (principal); M65.331 Trigger finger, right middle finger; M67.441 Ganglion, right hand; I10 Essential (primary) hypertension; E78.00 Pure hypercholesterolemia, unspecified; M19.90 Unspecified osteoarthritis, unspecified site; F41.8 Other specified anxiety disorders; Z72.0 Tobacco use
CPT/HCPCS: 88304; J1100; J2250; J2704; J3010; J3490

== ENCOUNTER 2019-08-02 11:46 | Emergency (ER) | payer MEDICARE, MEDICAID ==
--- OUTSIDE RECORDS SUMMARY | 2019-08-02 11:52 | XMS REPORT | Continuity of Care Document ---
:1950 External Reference #:[id number] Author Name Eric Mark MD Address [address] [place] [address] Care Team Providers Name Role Phone Eric Whitney MD - Family Care Team Information Engineering Technology Instructor [phone] Medicine Margoth Wing MD - Ophthalmology Care Team Information Engineering Technology Instructor [facility] - Care Team Information Engineering Technology Instructor [phone] Gastroenterology Problems Active Problems Provider Date Impetigo MEGGAN Kiran Onset: 05/18/2011 Dyspnea Eric Whitney M.D. Onset: 05/18/2011 Ex-smoker Eric Whitney M.D. Onset: 05/18/2011 Anxiety state MEGGAN Kiran Onset: 05/18/2011 Depressive disorder MEGGAN Kiran Onset: 05/18/2011 Hyperlipidemia Eric Whitney M.D. Onset: 05/18/2011 Essential hypertension Eric Whitney M.D. Onset: 05/18/2011 Diarrhea Eric Whitney M.D. Onset: 01/10/2012 Acute bronchitis Eric Whitney M.D. Onset: 08/04/2012 Acute upper respiratory infection Eric Whitney M.D. Onset: 08/10/2013 Nasal polyp Eric Whitney M.D. Onset: 11/01/2013 Abdominal pain Eric Whitney M.D. Onset: 09/30/2014 Cough Eric Whitney M.D. Onset: 11/29/2014 Nausea Eric Whitney M.D. Onset: 11/29/2014 Otalgia Eric Whitney M.D. Onset: 10/06/2015 Headache Eric Whitney M.D. Onset: 10/06/2015 Other chronic diseases of tonsils and Eric Whitney M.D. Onset: 2015 adenoids Posterior rhinorrhea Eric Whitney M.D. Onset: 07/22/2016 Pain in axilla Eric hWitney M.D. Onset: 09/22/2016 Low back pain Eric Whitney M.D. Onset: 03/28/2017 Acquired trigger finger Eric Whitney M.D. Onset: 10/31/2017 Social History Type Date Description Comments Sex Unknown Tobacco Use Start: Unknown Current Cigarette Smoker 1 Pack Daily Tobacco Use Start: Unknown Patient is a current smoker, smokes every day Allergies, Adverse Reactions, Alerts Active Allergies Reaction Severity Comments Date Penicillin Lidocaine 02/20/2014 Steroid Injectable 02/21/2019 Medications Active Medications SIG Qnty Indications Ordering Provider Date Lisinopril 1 by mouth every 90tabs Eric Rucker 07/27/2019 40mg Tablets day MD Jas Amlodipine Besylate 2 by mouth every 30tabs Eric Lr 07/05/2019 day Roman Whitney 10mg Tablets Seroquel use1-3 by mouth 90tabs Eric Rucker 05/28/2019 50mg Tablets every night at MD Jas bedtime Venlafaxine HCL ER Take One Capsule 30caps Eric rL 05/19/2019 By Mouth Every Roman Whitney 150mg Caps ER 24HR Day Endocet 1 by mouth every 150tabs Eric Lr 03/29/2017 10-325mg 4-6 hour as Roman Whitney Tablets needed pain Ventolin HFA inhale two puffs 18units Eric Lr 02/21/2017 by mouth every Roman Whitney 108(90Base) mcg/Act day up to four Aerosol times a day maximum daily dose = 8 puffs daily Simvastatin Take One Tablet 90tabs Eric Lr 03/24/2011 20mg By Mouth AT Roman Whitney Tablets Bedtime History Medications Amlodipine Besylate 1 by mouth every 90tabs Eric Lr 05/28/2019 - day for bp Roman Whitney 07/05/2019 5mg Tablets Azelastine HCL spray 1 spray in 30units Eric Lr 05/02/2019 - (Nasal) one nostril two Roman Whitney 07/27/2019 0.1% Solution times daily Flonase use 2 sprays in 16gm Eric Lr 04/24/2019 - 50mcg/Act each nostril one Roman Whitney 05/28/2019 Suspension time a day as needed Silver Sulfadiazine Apply fingertip 20gm L01.00 Alexandra Paiz 02/21/2019 - sized amount to MARCO Browning 07/27/2019 1% Cream right nostril twice daily until healed, not longer than 14 days. Effexor XR 1 by mouth every 30caps Erci Lr 02/21/2019 - 150mg Caps day Roman Whitney 05/19/2019 ER 24HR Immunizations CPT Code Status Date Vaccine Lot # [id number] Given 01/26/2019 Zoster (Shingles) Vaccine (HZV), Recombinant, [id number] Subunit, Adjuvanted 89253 Given 03/09/2017 Pneumococcal Immunization 57842 Given 03/09/2017 High-Dose, Influenza Virus Vacccine-fluzone 65 and older 47573 Given 02/06/2016 Pneumococcal Conjugate Vacc-13 49239 Given 03/27/2011 DO Not Use Split Influenza Virus Vaccine [id number] 61738 Given 10/07/2010 Zostivax [id number] 37780 Given 04/20/2010 DO Not Use Split Influenza Virus Vaccine [id number] 83303 Given 09/25/2008 Tetanus And Diptheria Adult Preservative Free [id number] >7Yrs 02482 Given 05/23/2003 Tetanus And Diptheria Adult Preservative Free >7Yrs Vital Signs Date Vital Result Comment 07/27/2019 3:22pm BP Systolic 160 mmHg BP Diastolic 98 mmHg Heart Rate 86 /min Body Temperature 98.1 F Respiratory Rate 16 /min Height 64 inches 5'4" Weight 230.00 lb BMI (Body Mass Index) 39.5 kg/m2 05/28/2019 2:07pm BP Systolic 170 mmHg BP Diastolic 104 mmHg Heart Rate 78 /min Body Temperature 97.7 F Respiratory Rate 16 /min Height 64 inches 5'4" Weight 229.00 lb BMI (Body Mass Index) 39.3 kg/m2 Results Description No Information Available Procedures Date Code Description Status 07/25/2019 47265547 Mammogram Completed 04/12/2019 53367 Pulse Oximetry Completed 02/12/2019 61642084 Mammogram Completed 08/11/2018 94165852 Mammogram Completed 08/09/2017 31679958 Mammogram Completed 09/17/2016 85776594 Colonoscopy Completed 07/26/2016 90316266 Mammogram Completed 03/20/2013 21499278 Mammogram Completed 07/09/2011 70961441 Mammogram Completed 11/03/2010 59799606 Colonoscopy Completed 05/07/2010 54993488 Mammogram Completed 01/31/2009 54122709 Mammogram Completed 12/19/2007 37226824 Mammogram Completed 11/21/2007 217289527 Bone Mineral Density Test Completed 01/28/2006 89913976 Mammogram Completed Medical Devices Description No Information Available Encounters Type Date Location Provider Dx Diagnosis Office Visit 05/28/2019 Main Office Eric Whitney, F32.9 Major depressive 2:00p M.D. 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 episode, unspecified 05/28/2019 M25.562 Pain in left knee Eric Whitney M.D. 05/28/2019 K12.30 Oral mucositis (ulcerative), unspecified Eric Whitney M.D. 04/12/2019 J06.9 Acute upper respiratory infection, Alexandra Browning NP unspecified 02/21/2019 L01.00 Impetigo unspecified Alexandra Browning NP 02/21/2019 D48.5 Neoplasm of uncertain behavior of skin Alexandra Browning NP Plan of Treatment Future Appointment(s):11/19/2019 2:20 pm - Eric Whitney M.D. at Main [facility]1107/27/2019 - Eric Mark MDI10 Essential (primary) hypertensionAllNew Medication:Lisinopril 40 mg - 1 by mouth every dayComments: Medication Management Patient Understands medications she's taking? Yes No Are there Barriers to Adherence? Yes No Has the patient been asked about herbal supplements and therapies, and OTC meds? Yes No Functional Status Description No Information Available Mental Status Description No Information Available Referrals Refer to Reason for Referral Status Appt Date Gurinder MARTINEZ, Mikayla Left knee pain/abnormal MRI jw Scheduled 06/22/2019 [facility] [address] [address] [phone] Madhu Barnes MD Consult and treat. Pt will call to schedule her Created own appt. Office note, labs and demographics faxed. [facility] [address] [facility] [address] [phone]
--- OUTSIDE RECORDS SUMMARY | 2019-08-02 11:53 | XMS REPORT | Continuity of Care Document ---
:1950 External Reference #:[id number] Author Name Mikayla Fairchild M.D. 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 Onset: 09/26/2014 Hypersomnia with sleep apnea Carrie Chacon DNP RN, SHREDDED FILLER HOPPER FEEDER-BC Onset: 2014 Note: Despite CPAP use Tobacco user Carrie Chacon DNP, RN, SHREDDED FILLER HOPPER FEEDER-BC Onset: 06/24/2015 Dyssomnia Carrie Chacon DNP, RN, SHREDDED FILLER HOPPER FEEDER-BC Onset: 02/03/2016 Localized, primary osteoarthritis Mikayla Fairchild M.D. Onset: 06/22/2019 Candidiasis of skin and nail Etienne Lewis MD Onset: 06/19/2019 Ganglion of hand Etienne Lewis MD Onset: 01/02/2019 Acquired trigger finger Etienne Lewis MD Onset: 01/02/2019 Snapping thumb syndrome Etienne Lewis MD Onset: 01/02/2019 Social History Type Date Description Comments Sex Unknown ETOH Use Denies alcohol use Recreational Drug Use Denies Drug Use Tobacco Use Start: Unknown Heavy tobacco smoker (more than 10 cigarettes/day) Smoking Status Reviewed: 06/22/19 Heavy tobacco smoker (more than 10 cigarettes/day) Exercise Type/Frequency Does not exercise Allergies, Adverse Reactions, Alerts Active Allergies Reaction Severity Comments Date Penicillin 08/08/2014 Stress 08/08/2014 Lidocaine Nausea and Vomiting 02/06/2018 Marcaine 06/19/2019 Medications Active Medications SIG Qnty Indications Ordering Provider Date Tramadol HCL 1-2 tablets by 30tabs Etienne Lewis, 02/08/2019 50mg mouth every 6 MD Tablets hours as needed pain Lisinopril 1 by mouth every Unknown 08/07/2014 40mg Tablets day Simvastatin 1 by mouth every Unknown 08/07/2014 day Claritin 1 tab daily as Unknown 10mg Capsules needed Endocet Unknown 10-325mg Tablets Trintellix 1 by mouth every Unknown 10mg Tablets day Immunizations Description No Information Available Vital Signs Date Vital Result Comment 06/22/2019 9:44am Height 64 inches 5'4" Weight 230.00 lb Heart Rate 72 /min BP Systolic 150 mmHg BP Diastolic 102 mmHg Respiratory Rate 18 /min Pain Level 5 BMI (Body Mass Index) 39.5 kg/m2 06/19/2019 11:15am Height 64 inches 5'4" Weight 220.00 lb Heart Rate 52 /min BP Systolic 118 mmHg BP Diastolic 80 mmHg Respiratory Rate 16 /min Pain Level 2 BMI (Body Mass Index) 37.8 kg/m2 Results Test Acquired Date Facility Test Result H/L Range Note Laboratory test 02/08/2019 [facility] Surgical SEE RESULT 1 , [address] Pathology BELOW [place] [id number] [phone] 1 [id number] 2 SEE RESULT BELOW Name: ANDIE DEY : [address]: Etienne Lewis MD Acct: [id number] Unit: [id number] AGE: 68 [facility] SEX: F Status: MARCI RECIO SPEC: [id number] UNA: 02/08/[address]: Etienne Lewis MD REQ: [id number] RECD: 02/08/19 STATUS: SOUT _ ORDERED: LEVEL 3 COMMENTS: [id number] FINAL DIAGNOSIS Right long finger, excision: -- Ganglion cyst. PRE-OPERATIVE DIAGNOSIS Right long finger mucous cyst GROSS DESCRIPTION The specimen is received in formalin labeled, Mucous Cyst Right Long Finger, and consists of a 0.9 x 0.6 x 0.3 cm garcia-white irregular rubbery fibrous tissue fragment with scant adherent yellow fat. The specimen is inked, serially sectioned and entirely submitted in one cassette. Signed by and Reported on: Ashlie Pinon MD 02/09/19 1747 END OF REPORT DEPARTMENT OF PATHOLOGY, [address] [place] [address] Hiram Garza M.D. Director [facility] # [id number] Procedures Date Code Description Status 06/22/2019 15159 Inject/Drain Joint/Bursa Major W/O US Completed 05/21/2019 78671 Destruction Of Benign Lesions Any Method 1-14 lesions Completed 03/22/2019 82403 Destruction Of Benign Lesions Any Method 1-14 lesions Completed 02/08/2019 77094 Excision Tendon Sheath Ganglion /Or Joint Capsule Hand Completed Or Finger 02/08/2019 16207 Excision Tendon Sheath Ganglion /Or Joint Capsule Hand Completed Or Finger 02/08/2019 04051 Trigger Finger Release Incision / Tendon Sheath Completed Incision 02/08/2019 87750 Trigger Finger Release Incision / Tendon Sheath Completed Incision 02/08/2019 79748 Trigger Finger Release Incision / Tendon Sheath Completed Incision 02/08/2019 01536 Trigger Finger Release Incision / Tendon Sheath Completed Incision 11/03/2010 21115821 Colonoscopy Completed Medical Devices Description No Information Available Encounters Type Date Location Provider Dx Diagnosis Office Visit 06/22/2019 [facility] Mikayla Fairchild, M25.562 Pain in left knee 9:45a at [facility] M17.12 Unilateral primary osteoarthritis, left knee M25.462 Effusion, left knee Office Visit 01/02/2019 2:30p [facility] Etienne M65.311 Trigger thumb, at [facility] Lewis MD right thumb M65.331 Trigger finger, right middle finger M67.441 Ganglion, right hand Assessments Date Code Description Provider 06/22/2019 M25.562 Pain in left knee Mikayla Fairchild M.D. 06/22/2019 M17.12 Unilateral primary osteoarthritis, left knee Mikayla Fairchild M.D. 06/22/2019 M25.462 Effusion, left knee Mikayla Fairchild M.D. 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 Madhu Barnes MD 05/21/2019 L53.8 Other specified erythematous conditions Madhu Barnes MD 04/17/2019 M65.311 Trigger thumb, right thumb Etienne Lewis MD 04/17/2019 M65.331 Trigger finger, right middle finger Etienne Lewis MD 04/17/2019 M67.441 Ganglion, right hand Etienne Lewis MD 04/17/2019 Z47.89 Encounter for other orthopedic aftercare Etienne Lewis MD 03/22/2019 L82.0 Inflamed seborrheic keratosis Madhu Barnes MD 03/22/2019 L53.8 Other specified erythematous conditions Madhu Barnes MD 03/22/2019 Z78.9 Other specified health status Madhu Barnes MD 03/22/2019 L29.8 Other pruritus Madhu Barnes MD 02/20/2019 M65.311 Trigger thumb, right thumb Etienne Lewis MD 02/20/2019 M65.331 Trigger finger, right middle finger Etienne Lewis MD 02/20/2019 M67.441 Ganglion, right hand Etienne Lewis MD 02/20/2019 Z48.02 Encounter for removal of sutures Etienne Lewis MD 02/08/2019 M65.311 Trigger thumb, right thumb Emmanuel Marisel, PA 02/08/2019 M65.311 Trigger thumb, right thumb Etienne Lewis MD 02/08/2019 M65.331 Trigger finger, right middle finger Emmanuel Joiner, VON 02/08/2019 M65.331 Trigger finger, right middle finger Etienne Lewis MD 02/08/2019 M67.441 Ganglion, right hand Emmanuel Joiner, PA 02/08/2019 M67.441 Ganglion, right hand Etienne Lewis MD 01/30/2019 M65.311 Trigger thumb, right thumb Etienne Lewis MD 01/30/2019 M65.331 Trigger finger, right middle finger Etienne Lewis MD 01/30/2019 M67.441 Ganglion, right hand Etienne Lewis MD 01/02/2019 M65.311 Trigger thumb, right thumb Etienne Lewis MD 01/02/2019 M65.331 Trigger finger, right middle finger Etienne Lewis MD 01/02/2019 M67.441 Ganglion, right hand Etienne Lewis MD Plan of Treatment Future Appointment(s):09/21/2019 2:15 pm - Mikayla Fairchild M.D. at [facility] at Uhgzkv0106/22/2019 - Mikayla Fairchild M.D.M25.562 Pain in left kneeFollow up:Follow up: 3 jlbwgyX90.12 Unilateral primary osteoarthritis, left kneeM25.462 Effusion, left knee Functional Status Description No Information Available Mental Status Description No Information Available Referrals Description No Information Available
--- OUTSIDE RECORDS SUMMARY | 2019-08-02 11:53 | XMS REPORT | Continuity of Care Document ---
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 Onset: 09/26/2014 Hypersomnia with sleep apnea Carrie Chacon DNP, RN, AIR HOSE COUPLER-BC Onset: 2014 Note: Despite CPAP use Tobacco user Carrie Chacon DNP, RN, AIR HOSE COUPLER-BC Onset: 06/24/2015 Dyssomnia Carrie Chacon DNP, RN, AIR HOSE COUPLER-BC Onset: 02/03/2016 Candidiasis of skin and nail Etienne Lewis [...] (more than 10 cigarettes/day) Smoking Status Reviewed: 06/19/19 Heavy tobacco smoker (more than 10 cigarettes/day) [...] Available Vital Signs Date Vital Result Comment 06/19/2019 11:15am Height 64 inches 5'4" Weight 220.00 lb Heart Rate 52 /min BP Systolic 118 mmHg BP Diastolic 80 mmHg Respiratory Rate 16 /min Pain Level 2 BMI (Body Mass Index) 37.8 kg/m2 04/17/2019 2:07pm Height 64 inches 5'4" Weight 220.00 lb Heart Rate 88 /min BP Systolic 144 mmHg BP Diastolic 98 mmHg Respiratory Rate 16 /min Pain Level 2 BMI (Body Mass Index) 37.8 kg/m2 Results Test Acquired Date Facility Test Result H/L Range Note Laboratory test 02/08/2019 [facility] Surgical SEE RESULT 1 , [address] Pathology BELOW [place] [id number] [phone] 1 [id number] 2 SEE RESULT BELOW Name: ANDIE DEY : [address]: Etienne Lewis MD Acct: [id number] Unit: [id number] AGE: 68 Location: [facility] Re02/08/19 SEX: F Status: DEP SD SPEC: [id number] UNA: 02/08/[address] [facility] [address]: Etienne Lewis MD REQ: [id number] RECD: 02/08/19 STATUS: SOUT _ ORDERED: LEVEL 3 COMMENTS: [id number] FINAL DIAGNOSIS Right long finger, excision: -- [...] 1747 END OF REPORT DEPARTMENT OF PATHOLOGY, [address] [place] [address] Hiram Garza M.D. Director [facility] # [id number] Procedures Date Code Description Status 05/21/2019 54918 Destruction Of Benign Lesions Any Method 1-14 lesions Completed 03/22/2019 81460 Destruction Of Benign Lesions Any Method 1-14 lesions Completed 02/08/2019 81953 Excision Tendon Sheath Ganglion /Or Joint Capsule Hand Completed Or Finger 02/08/2019 92909 Excision Tendon Sheath Ganglion /Or Joint Capsule Hand Completed Or Finger 02/08/2019 35111 Trigger Finger Release Incision / Tendon Sheath Completed Incision 02/08/2019 48115 Trigger Finger Release Incision / Tendon Sheath Completed Incision 02/08/2019 65636 Trigger Finger Release Incision / Tendon Sheath Completed Incision 02/08/2019 65056 Trigger Finger Release Incision / Tendon Sheath Completed Incision 11/03/2010 85071608 Colonoscopy Completed Medical Devices Description No Information Available Encounters Type Date Location Provider Dx Diagnosis Office Visit 01/02/2019 [facility] Etienne Lewis, M65.311 Trigger thumb, 2:30p at [place] right thumb M65.331 Trigger finger, right middle finger M67.441 Ganglion, right hand Assessments Date Code Description Provider 06/19/2019 M65.311 Trigger thumb, right thumb Etienne [...] MD 02/08/2019 M65.311 Trigger thumb, right thumb VON Ritter 02/08/2019 M65.311 Trigger thumb, right thumb Etienne Lewis MD 02/08/2019 M65.331 Trigger finger, right middle finger VON Ritter 02/08/2019 M65.331 Trigger finger, right middle finger Etienne Lewis MD 02/08/2019 M67.441 Ganglion, right hand VON Ritter 02/08/2019 M67.441 Ganglion, right hand Etienne Lewis [...] Etienne Lewis MD Plan of Treatment Future Appointment(s):06/22/2019 9:45 am - Mikayla Fairchild M.D. at [facility] at Bj[place]ins1106/19/2019 - Etienne Lewis, MDM65.311 Trigger thumb, right blzbiF52.331 Trigger finger, right middle newiaxB04.441 Ganglion, right handB37.2 Candidiasis of skin and nailM65.332 Trigger finger, left middle fingerFollow up:Follow up: As needed Functional Status Description No Information Available Mental Status Description No Information Available Referrals Description No Information Available
[2019-08-02 12:13] VITALS: BP 137/76
[2019-08-02 12:42] LABS: Influenza A Molecular Negative (Negative); Influenza B Molecular Negative (Negative)
--- NOTE | 2019-08-02 12:56 | UC ---
Respiratory Complaint HPI - HPI Summary HPI Summary: 68-year-old female comes in with a chief complaint of upper respiratory tract infection symptoms for about 4 days. She's had a runny nose postnasal drip. His cough chest congestion. Her chest hurts when she coughs. Patient is a smoker. Reports her sputum is yellow. No recent travel. Does have mild right ear pain. 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 Pain Intensity: 10 - Allergies/Home Medications Allergies/Adverse Reactions: Allergies Allergy/AdvReac Type Severity Reaction Status Date / Time lidocaine Allergy Severe See Comment Verified 08/02/19 12:12 Adhesive Tape [Plastic Tape] Allergy Intermediate IRRITATES Verified 08/02/19 12 :12 bupivacaine [From Marcaine] Allergy GI Upset Verified 08/02/19 12:12 Penicillins Allergy Unknown Verified 08/02/19 12:12 Reaction Details Home Medications: Home Medications Simvastatin TAB(NF) [Zocor(NF)] 20 mg PO BEDTIME 12/19/15 [History Confirmed 05/11] Hydrocodone/Acetaminophen [Hydrocodone-Acetamin 5-325 mg] 3 tab PO DAILY PRN 09/07 [History Confirmed 08/02/19] lisinopriL [Lisinopril] 40 mg PO BEDTIME 02/01/19 [History Confirmed 08/02/19] Albuterol Sulfate [Ventolin Hfa] 2 puff INH DAILY PRN 08/02/19 [History Confirmed 08/02/19] Amlodipine Besylate [Norvasc] 20 mg PO DAILY 08/02/19 [History Confirmed ] DOXYcycline CAP(*) [DOXYcycline 100MG CAP(*)] 100 mg PO BID #20 cap 08/02/19 [Rx ] Mupirocin 2% OINT* [Bactroban 2 % Oint*] 1 applic TOPICAL DAILY PRN 08/02/19 [ History Confirmed 08/02/19] Naproxen Sodium [Aleve] 3 tab PO ONCE PRN 08/02/19 [History Confirmed 08/02/19] QUEtiapine TAB* [Seroquel 25 MG TAB*] 75 mg PO DAILY 08/02/19 [History Confirmed 08/02/19] Venlafaxine ER (NF) [Effexor ER (NF)] 1 tab PO DAILY 08/02/19 [History Confirmed 08/02/19] PMH/Surg Hx/FS Hx/Imm Hx Previously Healthy: Yes Endocrine History: Dyslipidemia Cardiovascular History: Hypertension Respiratory History: COPD - Surgical History Surgical History: Yes Surgery Procedure, Year, and Place: HYSTERECTOMY . TONSILS 2016. [facility] - Family History Known Family History: Positive: None, Cardiac Disease, Hypertension - Social History Alcohol Use: None Substance Use Type: None Smoking Status (MU): Heavy Every Day Tobacco Smoker Type: Cigarettes Amount Used/How Often: 1 PPD SINCE AGE 16 Have You Smoked in the Last Year: Yes Household Exposure Type: Cigarettes Review of Systems All Other Systems Reviewed And Are Negative: Yes Constitutional: Positive: Other - see hpi Skin: Positive: Negative Eyes: Positive: Negative ENT: Positive: Ear Ache, Nasal Discharge, Sinus Congestion Respiratory: Positive: Cough, Other - see hpi Cardiovascular: Positive: Chest Pain - see hpi Gastrointestinal: Positive: Negative Motor: Positive: Negative Neurovascular: Positive: Negative Musculoskeletal: Positive: Negative Neurological/Mental Status: Positive: Negative Psychological: Positive: Negative Is Patient Immunocompromised?: No Physical Exam Triage Information Reviewed: Yes Appearance: Well-Appearing, No Pain Distress, Well-Nourished Vital Signs: Initial Vital Signs Temp 98.3 F 08/02/19 12:00 Pulse 82 08/02/19 12:00 Resp 18 08/02/19 12:00 BP 137/76 08/02/19 12:00 Pulse Ox 98 08/02/19 12:00 Vital Signs Reviewed: Yes Eye Exam: Normal Eyes: Positive: Conjunctiva Clear ENT: Positive: Pharynx normal, Nasal congestion, Nasal drainage, TMs normal Neck: Positive: Supple Respiratory: Positive: No respiratory distress, Rhonchi Cardiovascular: Positive: RRR Musculoskeletal: Positive: Strength Intact, ROM Intact, No Edema - no calf tenderness Neurological: Positive: Alert, Muscle Tone Normal Psychological: Positive: Age Appropriate Behavior Skin Exam: Normal Respiratory Course/Dx - Course Course Of Treatment: Prorate Clerk: Marjorie Padilla S ([id number]) Tar Distillation Supervisor: ZIGGY (ZIGGY) Report Date: 08/02/2019 13:11:00 Report Status: Final Start of Report Content Patient Name: ANDIE SEPULVEDA Medical Record#: [id number] Ordering Physician: Baldemar Bueno MD Acct.#: [id number] : 12/1950 Age: 68 Sex: F Location: [facility] Exam Date: 08/02/19 1254 ADM Status: REG ER Order Information: CHEST PA LAT 2 VWS Accession Number: [id number] CPT: 30350 Indication: Cough, congestion. 2 views of the chest including dual energy PA views demonstrate no mediastinal shift. Heart is of normal size and configuration. Lung vivas are clear. IMPRESSION: No active cardiopulmonary disease is noted. <Electronically signed by Marjorie Padilla MD in OV> 08/02/19 130 Dictated By: Marjorie Padilla MD Dictated Date/Time: 08/02/19 130 Transcribed Date/ Time: 08/02/19 130 Copy to: CC:Eric Whitney MD; Baldemar Bueno MD Imaging - [facility] - [place] [facility] [address] [place] [address] ph [phone] ph [phone]) ph ([phone]) End of Report Content ========= Strep and flu were negative. Patient was discussed with the health department and she does not meet criteria at this time to be checking for coronavirus. Patient will follow-up with primary care doctor's to get reevaluated if worse or any questions or concerns. DISCUSSED VIRAL VERSES BACTERIAL INFECTIONS AND THE ROLE OF ANTIBIOTICS. PATIENT PREFERS TO BE ON ANTIBIOTICS AT THIS TIME. - Differential Dx/Diagnosis Provider Diagnosis: Bronchitis, Right serous otitis media, COPD (chronic obstructive pulmonary disease) Discharge ED - Sign-Out/Discharge Documenting (check all that apply): Patient Departure All imaging exams completed and their final reports reviewed: Yes - Discharge Plan Condition: Stable Disposition: HOME Prescriptions: DOXYcycline CAP(*) [DOXYcycline 100MG CAP(*)] 100 mg PO BID #20 cap Patient Education Materials: Acute Bronchitis (ED), COPD (Chronic Obstructive Pulmonary Disease) (ED), Serous Otitis Media (ED) Referrals: Eric Whitney MD [Primary Care Provider] - Additional Instructions: FOLLOW UP WITH YOUR DOCTOR IF NOT COMPLETELY IMPROVED. GET REVALUATED SOONER IF NOT IMPROVED OR WORSE OR ANY QUESTIONS OR CONCERNS. - Billing Disposition and Condition Condition: STABLE Disposition: Home
== END 2019-08-02 13:45 | disposition home or self-care (01) ==
LOC: UCEAST 11:46
DX: J40 Bronchitis, not specified as acute or chronic (principal); H65.91 Unspecified nonsuppurative otitis media, right ear; J44.9 Chronic obstructive pulmonary disease, unspecified; F17.210 Nicotine dependence, cigarettes, uncomplicated; I10 Essential (primary) hypertension; E78.5 Hyperlipidemia, unspecified; Z79.899 Other long term (current) drug therapy; Z88.0 Allergy status to penicillin; Z91.09 Other allergy status, other than to drugs and biological substances; Z88.8 Allergy status to other drugs, medicaments and biological substances
CPT/HCPCS: 71046; 87651; 99212; G0463

== ENCOUNTER 2020-07-10 09:49 | Inpatient (IN) ==
[~2020-07-10 09:49] MED LIST changes: +Buffered Lidocaine 1% SYRIN 1 ml INTRADERM ONE; -Buffered Lidocaine 1% SYRIN* 1 ML/SYRINGE INTRADERM ONE; -Dexamethasone IV* 4 MG/ML 1 ML (4 MG) IV SLOW PU ONE; -Famotidine IV* 10 MG/ML 2 ML (20 mg) IV ONE; -Lactated Ringers 1000 ML Bag* 1,000 ML IV SCH; +Lactated Ringers 1000 ml BAG 1,000 ML IV SCH; +Midazolam 2 mg/2 ml VIAL 1 mg/ml 2 ml VIAL (2 mg) ONE
[2020-07-10] MEDS ORDERED: ROPIVACAINE 5 MG/ML 30 ML BTL (0.5%) ONE (09:59)
[2020-07-10] MEDS ORDERED: Dexamethasone IV 4 MG/ML VIAL 1 ml VIAL ONE ×2 (09:59→13:10)
[2020-07-10] MEDS ORDERED: Clindamycin 900 MG/D5W BAG 900 MG/50 ML BAG IVPB ONE (10:08)
[2020-07-10 10:43] LABS: INR 1.18 (0.82-1.09)
[2020-07-10] MEDS ORDERED: Midazolam 2 mg/2 ml VIAL 1 mg/ml 2 ml VIAL (2 mg) ONE (11:33)
[2020-07-10] MEDS ORDERED: fentaNYL 250 mcg/5 ml 50 MCG/ML 5 ml VIAL (250 MCG) ONE (11:45)
[2020-07-10] MEDS ORDERED: Rocuronium 50 mg VIAL 10 mg/ml 5 ml VIAL (50 mg) ONE ×2 (11:45→12:47)
[2020-07-10] MEDS ORDERED: Levalbuterol 1.25MG/0.5ML NEB.SOL ONE (11:47)
[2020-07-10] MEDS ORDERED: Levalbuterol 1.25MG/0.5ML NEB.SOL INH ONE (11:57)
[2020-07-10] MEDS ORDERED: HYDROmorphone 1 MG/1 ML SYRINGE ONE ×2 (12:32→14:58)
[2020-07-10] MEDS ORDERED: Glycopyrrolate IV 0.2 MG/ML 1 ML VIAL ONE (12:37)
[2020-07-10] MEDS ORDERED: Propofol 10 MG/ML 20 ML BTL ONE (14:04)
[2020-07-10] MEDS ORDERED: Ondansetron 4 mg VIAL 2 MG/ML 2 ml VIAL ONE (14:04)
[2020-07-10] MEDS ORDERED: Lactulose 30 ml UDC PO PRN (14:44)
[2020-07-10] MEDS ORDERED: diPHENhydraMINE 25 mg TAB PO PRN (14:44)
[2020-07-10] MEDS ORDERED: Morphine 2 MG/ML SYRINGE IV PRN (14:44)
[2020-07-10] MEDS ORDERED: oxyCODONE/Acetamin 5/325 mg TAB PO PRN (14:44)
[2020-07-10] MEDS ORDERED: Magnesium Hydroxide LIQ 30 ML UDC PO PRN (14:44)
[2020-07-10] MEDS ORDERED: diPHENhydraMINE IV 50 MG/ML 1 ml VIAL (BENADRYL) IV PRN ×2 (14:44→14:59)
[2020-07-10] MEDS ORDERED: Ondansetron 4 mg VIAL 2 MG/ML 2 ml VIAL IV PRN (14:44)
[2020-07-10] MEDS ORDERED: Ondansetron ODT 4 mg TAB 4 MG TAB PO PRN (14:44)
[2020-07-10] MEDS ORDERED: diPHENhydraMINE IV 50 MG/ML 1 ml VIAL (BENADRYL) ONE (14:58)
[2020-07-10] MEDS ORDERED: HYDROmorphone 1 MG/1 ML SYRINGE IV PRN (14:59)
[2020-07-10] MEDS ORDERED: HYDROcodone/ACETAMIN 5/325 mg TAB PO PRN (14:59)
[2020-07-10] MEDS ORDERED: Naloxone 0.4 mg VIAL 0.4 mg/ml 1 ml VIAL IV PRN (14:59)
[2020-07-10] MEDS: oxyCODONE/Acetamin 5/325 mg TAB PO PRN (17:13)
[2020-07-10] MEDS: Lactated Ringers 1000 ml BAG 1,000 ML IV SCH (17:15)
[2020-07-10] MEDS: Clindamycin 600 MG/D5W BAG 600 MG/50 ML BAG IV SCH (19:52)
[2020-07-10] MEDS: Albuterol HFA INHALER 8 gm MDI INH SCH (20:56)
[2020-07-10] MEDS: Magnesium Hydroxide LIQ 30 ML UDC PO SCH ×2 (22:39→22:42)
[2020-07-11] MEDS: oxyCODONE/Acetamin 5/325 mg TAB PO PRN ×3 (00:28→11:58)
[2020-07-11] MEDS: Clindamycin 600 MG/D5W BAG 600 MG/50 ML BAG IV SCH ×2 (04:40→12:04)
[2020-07-11] MEDS: Lactated Ringers 1000 ml BAG 1,000 ML IV SCH (04:46)
[2020-07-11 05:47] LABS: Hematocrit 35 % (35-47); Hemoglobin 11.7 g/dL (12.0-16.0); Platelet Count 228 10^3/uL (150-450)
[2020-07-11 06:02] LABS: BUN/Creatinine Ratio 26.1 (8-20); Calcium 8.5 mg/dL (8.6-10.3); EGFR African American 102.1 (>60); EGFR Non-African American 84.4 (>60)
[2020-07-11] MEDS: Magnesium Hydroxide LIQ 30 ML UDC PO SCH ×2 (08:57→23:17)
[2020-07-11] MEDS: Vitamin THERAPEUTIC TAB PO SCH (08:57)
[2020-07-11] MEDS: Albuterol HFA INHALER 8 gm MDI INH SCH (19:48)
[2020-07-12] MEDS: oxyCODONE/Acetamin 5/325 mg TAB PO PRN ×2 (02:25→08:46)
[2020-07-12 06:21] LABS: Hematocrit 34 % (35-47); Hemoglobin 11.3 g/dL (12.0-16.0); Mean Platelet Volume 7.3 fL (7.4-10.4); Platelet Count 232 10^3/uL (150-450)
[2020-07-12] MEDS: Magnesium Hydroxide LIQ 30 ML UDC PO SCH (08:47)
[2020-07-12] MEDS: Vitamin THERAPEUTIC TAB PO SCH (08:47)
[2020-07-12 11:31] VITALS: BP 124/59
== END 2020-07-12 16:00 | disposition home health service (06) | DRG 470 ==
LOC: OR 09:49 → SSU 09:49 → OBSVTOIN 16:38
PROVIDERS: ADMIT Orthopaedic Surgery Adult Reconstructive Orthopaedic Surgery; ATTEND Orthopaedic Surgery Adult Reconstructive Orthopaedic Surgery